=== PATIENT | male | born 1975 | race Caucasian/White ===

== ENCOUNTER 2024-02-26 06:15 | Emergency (ER) | payer OTHER, SELFPAY ==
[2024-02-26 06:18] VITALS: BP 182/99; PULSE 93; RESP 18; TEMP 36.2; O2SAT 97
--- NOTE | 2024-02-26 06:30 | ED.GENADULT ---
HPI - General Adult General Chief complaint: Dental/Oral Stated complaint: jaw pain Time Seen by Provider: 02/26/24 06:20 Source: patient Mode of arrival: ambulatory Limitations: no limitations History of Present Illness HPI narrative: This is a 48-year-old male that presents with some right facial droop with some recent respiratory symptoms with a difficulty closing his right eye with no other neurological deficits arms legs or normal. Patient with no fever chills has some right facial sensitivity with palpation and ear discomfort. There is no shortness of breath no chest pain no nausea vomiting no sore throat. Onset (ago): day(s) Location: face Severity: mild Related Data Allergies Allergy/AdvReac Type Severity Reaction Status Date / Time No Known Allergies Allergy Verified 02/26/24 06:19 Review of Systems Review of Systems: All systems reviewed & are unremarkable except as noted in HPI and below PMFSH Past Medical History Medical History Patient denies medical problems Exam Const: General: healthy appearing and no acute distress Nutritional Appearance: well nourished Orientation/consciousness: patient oriented x3 Limitations: no limitations HENMT: Head: normal to inspection Ears: external ears normal and TM's normal bilaterally Face and sinus: normal facial exam ( facial droop) Eyes: Conjunctivae: conjunctivae normal Pupils: Equal, round and reactive pupils present EOM: EOMs intact bilaterally Direct Ophthalmoscopy: no photophobia Neck: Neck: normal visual inspection, no lymphadenopathy and no meningeal signs Chest: Chest palpation & inspection: normal inspection of the chest Resp: Effort & Inspection: normal respiratory effort Auscultation: clear to auscultation bilaterally Cardio: Rate: regular rate Rhythm: regular rhythm GI: GI Palp: Yes Soft to palpation Auscultation: normal bowel sounds : General: Yes bladder normal to palpation Skin: General skin exam: normal color Rashes: no rashes Neuro: General: patient oriented x3, moves all extremities, no meningeal signs, no focal motor deficits and CN's II-XI intact bilaterally Cranial nerves: Yes Nystagmus not present Speech: normal speech Gait exam (Neuro): Normal gait present Extrem: General: normal to inspection and no clubbing, cyanosis or edema Course Course Emergency Course: patient with some Oakley's palsy and will be sending a prescriptions to patient's pharmacy. Vital Signs Vital signs: Vital Signs Temperature 36.2 C L 02/26/24 06:18 Pulse Rate 93 02/26/24 06:18 Respiratory Rate 18 02/26/24 06:18 Blood Pressure 182/99 H 02/26/24 06:18 Pulse Oximetry 97 02/26/24 06:18 Oxygen Delivery Room Air 02/26/24 06:18 Temperature 36.2 C L 02/26/24 06:18 Pulse Rate 93 02/26/24 06:18 Respiratory Rate 18 02/26/24 06:18 Blood Pressure 182/99 H 02/26/24 06:18 Pulse Oximetry 97 02/26/24 06:18 Oxygen Delivery Room Air 02/26/24 06:18 Medical Decision Making Vital Signs Vital Signs: Vital Signs Temperature 36.2 C L 02/26/24 06:18 Pulse Rate 93 02/26/24 06:18 Respiratory Rate 18 02/26/24 06:18 Blood Pressure 182/99 H 02/26/24 06:18 Pulse Oximetry 97 02/26/24 06:18 Oxygen Delivery Room Air 02/26/24 06:18 Temperature 36.2 C L 02/26/24 06:18 Pulse Rate 93 02/26/24 06:18 Respiratory Rate 18 02/26/24 06:18 Blood Pressure 182/99 H 02/26/24 06:18 Pulse Oximetry 97 02/26/24 06:18 Oxygen Delivery Room Air 02/26/24 06:18 Critical Care Time Critical Care Time Critical Care Time: No Discharge Plan Discharge Clinical Impression: Oakley's palsy Patient Disposition: Home, Self-Care Condition: Stable Instructions: Antibiotic Form, Oakley Palsy (ED) Additional Instructions: take medicine as prescribed and follow up with primary within 1 week for further evaluation and treatment. Prescrip
[2024-02-26 06:56] VITALS: BP 155/75; PULSE 75; RESP 18; O2SAT 98
== END 2024-02-26 06:56 | disposition home or self-care (01) ==
LOC: CHSED 06:47
PROVIDERS: Emergency Provider Emergency Medicine
DX: G51.0 Bell's palsy (principal)
CPT/HCPCS: 99283